=== PATIENT | female | born 1975 | race Asian ===

== ENCOUNTER 2017-09-22 08:02 | Inpatient (IN) | payer OTHER, SELFPAY ==
[2017-09-22] VITALS (8 sets, daily range): BP systolic 115–137; BP diastolic 68–82; PULSE 75–105; RESP 14–20; TEMP 36.7–37.2; O2SAT 100; BMI 22.4
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
--- NOTE | 2017-09-22 08:05 | DI.RAD.S_ITS ---
PROCEDURE: XR SHOULDER RT MIN 2V INDICATIONS: pain TECHNIQUE: 2 views of the shoulder were acquired. COMPARISON: None. FINDINGS: Bones: No fractures or dislocations. No suspicious bony lesions. Visualized ribs appear intact. Soft tissues: No suspicious soft tissue calcifications. IMPRESSION: No acute radiographic findings. If there is continued pain, followup exam or additional imaging such as MRI or CT could be performed for further assessment. Dictated by: Peggy Herrera M.D. on 09/22/2017 at 8:12 Approved by: Peggy Herrera M.D. on 09/22/2017 at 8:13
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
[2017-09-22 08:53] LABS: Add Manual Diff / Slide Review NO; Basophils Percent Auto 0.7 % (0-2); Eosinophils Percent Auto 1.4 % (2-4); Hematocrit 38.4 % (36-46); Lymphocytes Percent Auto 26.9 % (25-40); Mean Corpuscular HGB Conc 33.8 % (30-36); Mean Corpuscular Hemoglobin 30.6 PG (26-34); Mean Corpuscular Volume 90.6 fL (80-100); Monocytes Percent Auto 6.5 % (3-14); Neutrophils Absolute Auto 4500 /uL (3000-5900); Neutrophils Percent Auto 64.5 % (50-75); Platelet Count 266 X10^3/uL (150-400); Red Blood Cell Count 4.24 X10^6/uL (4.0-5.2); Red Cell Distribution Width 12.7 % (11.6-14.8)
[2017-09-22] MEDS: MORPHINE 5 MG/ML INJ 4 MG IV (08:58)
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
[2017-09-22 09:07] LABS: Alanine Aminotransferase 127 IU/L (9-52); Albumin 3.7 g/dL (3.5-5.0); Alkaline Phosphatase 45 U/L (38-126); Aspartate Aminotransferase 222 IU/L (14-36); BUN Creatinine Ratio 16.3 (6-22); Bilirubin Total 0.6 mg/dL (0.2-1.3); Blood Urea Nitrogen 13 mg/dL (7-17); Calcium 8.7 mg/dL (8.4-10.2); Carbon Dioxide 22 mmol/L (22-32); Chloride 104 mmol/L (98-107); Estimated Glomerular Filt Rate > 60.0 mL/min (>60); Globulin 3.6 g/dL (1.7-4.1); Glucose 117 mg/dL (70-100); HEMOLYSIS < 15 (0-50); Potassium 3.6 mmol/L (3.4-5.1); Sodium 136 mmol/L (137-145); Total Protein 7.3 g/dL (6.3-8.2)
[2017-09-22 09:21] LABS: Pregnancy Test Serum,Qual Negative (Negative)
[2017-09-22] MEDS: TET,DIPH,PERTUSS(ACELL),VAC/PF 0.5 ML SYRINGE IM (09:33)
--- NOTE | 2017-09-22 10:27 | PC.NURSE ---
New onset right chest pain. Call for ekg and MD made aware
--- NOTE | 2017-09-22 10:28 | PC.NURSE ---
patient was able to stand at bedside with walker but unable to ambulate due to pain
[2017-09-22] MEDS: MORPHINE 2 MG/ML INJ IV (13:18)
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
[2017-09-22] MEDS: HYDROMORPHONE PCA 6 MG/30 ML PCA.VIAL IV (21:52)
[2017-09-23 00:19] VITALS: BP 125/71; PULSE 78; RESP 19; TEMP 36.7; O2SAT 98
[2017-09-23 05:09] VITALS: BP 112/63; PULSE 70; RESP 20; TEMP 36.6; O2SAT 100
[2017-09-23] MEDS: HYDROMORPHONE PCA 6 MG/30 ML PCA.VIAL IV ×2 (05:50→22:56)
--- NOTE | 2017-09-23 07:35 | PC.NURSE ---
Pt's urine was red wine color. family and pt claimed that MD is aware of it. pt reports she started her menses. her peripad had some spotting, but not much blood in the pad to cause her urine to be red wine.
[2017-09-23 08:06] VITALS: BP 127/76; PULSE 65; RESP 16; TEMP 36.6; O2SAT 100
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
--- NOTE | 2017-09-23 09:05 | PT.IIE ---
Current Diagnoses Other specified fracture of right pubis, initial encounter for closed fracture (09/22/17) Physical Therapy Inpatient Evaluation/Re-Eval M1 PT/OT-IP Prior Functional Status Start: 09/23/17 13:11 Freq: NEEDED Status: Active Protocol: Document 09/23/17 09:05 AB (Rec: 09/23/17 13:27 [id number]) Medical Review Prior Functional Status Medical History Reviewed Yes Diet/Fluid Consistency Pureed Thin Liquids Mobility and Gait pt stated that she is independent with all mobilities and ambulation without AD Prior Functional Level (Other details) pt works in housekeeping. Social History Household Members significant other family Living Arrangements House Number of Floors (Floors) Two Floors Number of Stairs To Enter/Railing? has 1 step to enter has 1 flight of steps with R rail ascending to get to bedroom level. Home Environment Standard Height Toilet Walk in Shower Home Equipment Grab Bars In Shower Employment Status Economic Development Specialist Employed Additional Social History Comment pt lives with her and mother in law. M2 PT-IP Current Condition Start: 09/23/17 13:11 Freq: NEEDED Status: Active Protocol: Document 09/23/17 09:05 AB (Rec: 09/23/17 13:27 [id number]) Physical Therapy Current Condition Current Condition Evaluation Date 09/23/17 Treatment Diagnosis R ischial ramus fracture mildly displaced s/p trauma; difficulty in walking Onset Date 09/22/17 Weight Bearing Status Weight Bearing Status Weight Bear as Tolerated M3 PT-IP Subjective Start: 09/23/17 13:11 Freq: NEEDED Status: Active Protocol: Document 09/23/17 09:05 AB (Rec: 09/23/17 13:27 [id number]) Subjective Physical Therapy Visit Type Type Initial Evaluation Visit Start Time 09:05 Visit Stop Time 11:00 Total Visit Minutes 45 Number of SALES AND IN HOME DELIVERY SPECIALIST Visits 0 Physical Therapy Visit Comments Patient Comments pt agreeable to do therapy Therapy Pain Assessment Pain When Pain Assessed At Rest Pain Present Pain Present Pain Reported Location Bilateral Knee Intensity 6 Scale Used Numeric (1 - 10) Pain Behaviors Crying Pain Management Techniques Apply Cold Timing of Activity with Medications M4 PT-IP Mobility and Gait Start: 09/23/17 13:11 Freq: NEEDED Status: Active Protocol: Document 09/23/17 09:05 AB (Rec: 09/23/17 13:27 AB [id number]) PT-Bed Mobility Assessment Supine to Sit Supine to Sit Standby Assistance Sit to Supine Sit to Supine Moderate Assistance PT-Transfer Assessment Sit to and From Stand Sit to and from Stand Contact Guard Assistance Equipment Transfer Assistive Device Gait Belt Front Wheeled Walker Orthotic/Prosthetic Devices or Brace: No Transfers Transfer Destination Toilet Transfer Technique pt ambulated to the toilet using FWW Transfer Ability Level of Assist Minimal Assistance Moderate Assistance Comments Mobility Comments pt ambulated to the toilet using FWW initially requiring min A but requiring mod A midway due to c/o increase R groin pain. Gait Assessment Gait Gait Assistance Required: Minimum Assistance Moderate Assistance Distance (Feet) (feet) 15 Able to Maintain Weight Bearing Status Yes During Gait Assistive Devices Orthotic/Prosthetic Devices or Brace: No Gait Deviations General Gait Pattern Antalgic Decreased Stride Length Decreased Feet Clearance Factors Limiting Gait Function Factors Limiting Gait Function Decreased Activity Tolerance Decreased Strength Pain PT-Balance Assessment Sitting Balance and Reactions Static Sitting Balance Ability Good Dynamic Sitting Balance Ability Fair Standing Balance and Reactions Static Standing Balance Ability Fair Dynamic Standing Balance Ability Fair M5 PT-IP Objective Assessments Start: 09/23/17 13:11 Freq: NEEDED Status: Active Protocol: Document 09/23/17 09:05 AB (Rec: 09/23/17 13:27 [id number]) Orientation Orientation/Cognition Level of Alertness Alert Orientation Name Age Birthday Month Date Year Day of Week Place Situation Safety Awareness Understands Safety Issues Strength Lower Extremity Strength Assessment Right Impaired Comments Strength Comments pain limiting RLE M6 PT-IP Treatment Start: 09/23/17 13:11 Freq: NEEDED Status: Active Protocol: Document 09/23/17 09:05 AB (Rec: 09/23/17 13:27 [id number]) Physical Therapy Treatment Education Education Provided Weight Bearing Status M7 PT-IP Assessment and Plan Start: 09/23/17 13:11 Freq: NEEDED Status: Active Protocol: Document 09/23/17 09:05 AB (Rec: 09/23/17 13:27 [id number]) PT Summary Assessment and Plan Potential Rehabilitation Potential Fair Status of Condition at Evaluation Evolving Summary Impairments Pain ROM Strength Balance Coordination Sensation Tone Cognition Bed Mobility Transfers Gait Activity Tolerance Assessment Summary pt requiring one person assist with mobility. pt stated that she can stay on main level of the house and her [id number] can assist her at home. pt presents with decrease activity tolerance with increase pain during mobility. d/c plan depending on progress. may go home with assist but will need a FWW and/or w/c. will continue to assess. Goals Bed Mobility Goal Standby Assistance Transfer Goal Standby Assistance Gait Goal Standby Assistance Gait Distance 50 Days to Meet Goals 3 Frequency of Treatment Frequency Of Treatment Once a Day Treatment Plan Physical Therapy Treatment Plan Bed Mobility Training Transfer Training Gait Training Therapeutic Exercise Balance Retraining Post Op Education Discharge Planning Hot or Cold Pack Neuromuscular Re-ed Coordination Retraining Manual Therapy Other Recommendations and Next Treatment ambulation Focus Recommendations To Nursing Amount of Assist Needed 1 Person Assist Discharge Recommendations PT Discharge Recommendations Home with 18/10 Assist Home Health Equipment Needed for Home Before w/c; FWW Discharge
[2017-09-23 11:52] VITALS: BP 118/71; PULSE 76; RESP 16; TEMP 36.8; O2SAT 99
[2017-09-23 12:39] LABS: Bacteria Urine None Seen; RBC Urine None Seen (0-5/HPF); WBC Urine None Seen (0-5/HPF)
[2017-09-23 12:40] VITALS: BMI 22.5
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
[2017-09-23 12:59] LABS: Urine Comments Microscopic Normal
[2017-09-23] MEDS: HYDROMORPHONE PCA 6 MG/30 ML PCA.VIAL 1.6 MG IV (13:37)
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
--- NOTE | 2017-09-23 15:27 | PC.NURSE ---
Pain/Mobility/Skin: SI can't even eat a piece of bread my mouth is so sore. One of patients front incisors is cracked to the gum. She had questions about a dentist but discussed there is no house dentist at the hospital and repair will occur most likely as an outpatient, nutrition watson it does appear quite painful when she eats and RD consult was ordered and RD came and saw pt. They discussed food options and RD will be modifying diet and sending smoothies and other things the patient thinks she will be able to eat. It does feel soothing to eat ice chips. Pt has an abrasion on both the forehead and chin. Bilat hand/wrist dressings were changed today. Rt hand is worse than lt, all fingers also w/abrasions. Areas cleansed w/saline. Bilat knee dressing are intact. Pt having bloody urine vs she is having her menses. She reports she had her period 2 weeks ago. MD Bill made aware of poss bleeding in urine vs menses. See new orders. Burkett placed w/out problems, ua obtained and sent to lab. Urine appears clear. Pt resting comfortably at this time. Cont w/poc.
[2017-09-23 15:35] VITALS: BP 127/70; PULSE 67; RESP 16; TEMP 36.6; O2SAT 96
[2017-09-23 23:45] VITALS: BP 118/60; PULSE 66; RESP 15; TEMP 37; O2SAT 98
[2017-09-24 05:23] VITALS: PULSE 63; RESP 17; TEMP 36.8; O2SAT 100
[2017-09-24] MEDS: HYDROMORPHONE PCA 6 MG/30 ML PCA.VIAL IV (05:29)
--- NOTE | 2017-09-24 08:20 | PC.NURSE ---
Addendum entered by Therese Fritz R.N. 09/24/17 14:47: Up to chair again for lunch. Given 5 mg Oxycodone, which she tolerated well. Denied pain at rest after admin. SUPERVISOR CIGAR PROCESSING and IV fluids dc'd per MD orders from today. Patient able to make needs known and calls appropriately. Light in reach. Original Note: Shift summary: Awake and alert, oriented X3. Up to chair for breakfast with BISTRO SERVER assist. A lot of pain with transfers, but reports it feels good to be OOB. C/O 6/10 pain in her back, hands, knees and R arm- reports SUPERVISOR CIGAR PROCESSING Dilaudid effective for pain management. Fresh ice packs to back and bilateral knees. Dressings to bilateral hands and knees C/D/I. CMS+. IV TKO for SUPERVISOR CIGAR PROCESSING, site in L forearm WNL. Burkett patent to gravity, urine clear yellow. Working on sponge-bath with assist from sister, gown changed. Lungs CTA, HRR. BT+, abd soft. Able to make needs known and calls appropriately. Agrees not to get up without staff assist. Call light and belongings in reach.
[2017-09-24 08:33] VITALS: BP 127/78; PULSE 60; RESP 12; TEMP 36.7; O2SAT 100
--- NOTE | 2017-09-24 09:05 | PT.IPTN ---
Current Diagnoses Other specified fracture of right pubis, initial encounter for closed fracture (09/22/17) Other specified fracture of right ischium, initial encounter for closed fracture (09/22/17) Physical Therapy Treatment Note M2 PT-IP Current Condition Start: 09/23/17 13:11 Freq: NEEDED Status: Active Protocol: Document 09/23/17 09:05 AB (Rec: 09/23/17 13:27 AB [id number]) Physical Therapy Current Condition Current Condition Evaluation Date 09/23/17 Treatment Diagnosis R ischial ramus fracture mildly displaced s/p trauma; difficulty in walking Onset Date 09/22/17 Weight Bearing Status Weight Bearing Status Weight Bear as Tolerated M3 PT-IP Subjective Start: 09/23/17 13:11 Freq: NEEDED Status: Active Protocol: Document 09/24/17 09:05 AB (Rec: 09/24/17 12:44 AB [id number]) Subjective Physical Therapy Visit Type Type Treatment Note Visit Start Time 09:05 Visit Stop Time 09:45 Total Visit Minutes 40 Number of EDUCATIONAL PROGRAM DIRECTOR Visits 0 Physical Therapy Visit Comments Patient Comments pt agreeable to do therapy Therapy Pain Assessment Pain When Pain Assessed At Rest Pain Present Pain Present Pain Reported Location Right Groin Scale Used Numeric (1 - 10) Pain Management Techniques Apply Cold Timing of Activity with Medications M4 PT-IP Mobility and Gait Start: 09/23/17 13:11 Freq: NEEDED Status: Active Protocol: Document 09/24/17 09:05 AB (Rec: 09/24/17 12:44 AB [id number]) PT-Bed Mobility Assessment Sit to Supine Sit to Supine Minimal Assistance PT-Transfer Assessment Sit to and From Stand Sit to and from Stand Contact Guard Assistance Equipment Transfer Assistive Device Gait Belt Front Wheeled Walker Transfers Transfer Destination Toilet Transfer Technique pt ambulated to the toilet Transfer Ability Level of Assist Minimal Assistance Comments Mobility Comments pt requiring min A to ambulated to the toilet using FWW. requiring min A to maintain standing balance and assist with brief management. pt required rest breaks in between activities due to c/o pain. Gait Assessment Gait Gait Assistance Required: Minimum Assistance Distance (Feet) (feet) 12 Able to Maintain Weight Bearing Status Yes During Gait Assistive Devices Assistive Device Gait Belt Front Wheeled Walker Gait Deviations General Gait Pattern Antalgic Decreased Stride Length Decreased Feet Clearance Step-to Gait Factors Limiting Gait Function Factors Limiting Gait Function Decreased Activity Tolerance Decreased Strength Limited Range of Motion Pain Poor Balance M5 PT-IP Objective Assessments Start: 09/23/17 13:11 Freq: NEEDED Status: Active Protocol: Document 09/23/17 09:05 AB (Rec: 09/23/17 13:27 AB [id number]) Orientation Orientation/Cognition Level of Alertness Alert Orientation Name Age Birthday Month Date Year Day of Week Place Situation Safety Awareness Understands Safety Issues Strength Lower Extremity Strength Assessment Right Impaired Comments Strength Comments pain limiting RLE M6 PT-IP Treatment Start: 09/23/17 13:11 Freq: NEEDED Status: Active Protocol: Document 09/23/17 09:05 AB (Rec: 09/23/17 13:27 AB [id number]) Physical Therapy Treatment Education Education Provided Weight Bearing Status M7 PT-IP Assessment and Plan Start: 09/23/17 13:11 Freq: NEEDED Status: Active Protocol: Document 09/24/17 09:05 AB (Rec: 09/24/17 12:44 AB [id number]) PT Summary Assessment and Plan Potential Rehabilitation Potential Good Summary Impairments Pain ROM Strength Balance Coordination Sensation Tone Cognition Bed Mobility Transfers Gait Activity Tolerance Progress Towards Goals Slow Progress due to Pain Assessment Summary pt requiring one person assist with mobility and unable to tolerate much activity. informed pt regardging equipement needs: w/c and FWW and 18/10 assist at home. pt agreed. pt will require homehealth services. Goals Gait Goal Standby Assistance Front Wheel Walker Gait Distance 50 Days to Meet Goals 3 Frequency of Treatment Frequency Of Treatment Once a Day Treatment Plan Physical Therapy Treatment Plan Bed Mobility Training Transfer Training Gait Training Therapeutic Exercise Balance Retraining Post Op Education Discharge Planning Hot or Cold Pack Neuromuscular Re-ed Coordination Retraining Manual Therapy Other Recommendations and Next Treatment ambulation Focus Recommendations To Nursing Amount of Assist Needed 1 Person Assist Discharge Recommendations PT Discharge Recommendations Home with 18/10 Assist Home Health Equipment Needed for Home Before w/c; FWW Discharge
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
[2017-09-24] MEDS: DOCUSATE 100 MG CAPSULE PO ×2 (13:26→19:47)
[2017-09-24] MEDS: GABAPENTIN 300 MG CAPSULE PO ×2 (13:26→20:59)
[2017-09-24] MEDS: OXYCODONE IR 5 MG TABLET PO ×2 (13:27→17:26)
[2017-09-24] MEDS: ENOXAPARIN 40 MG/0.4 ML SYRINGE SUBCUT (13:27)
[2017-09-24] MEDS: MAGNESIUM HYDROXIDE 30 ML UDC PO (13:57)
[2017-09-24 14:23] VITALS: BP 139/98; PULSE 73; RESP 16; TEMP 37.1; O2SAT 100
[2017-09-24 15:35] VITALS: BP 122/88; PULSE 71; RESP 16; TEMP 37.4; O2SAT 100
[2017-09-24 19:40] VITALS: BP 137/90; PULSE 73; RESP 16; TEMP 37.1; O2SAT 95
[2017-09-24] MEDS: hydrOXYzine pamoate 25 MG CAPSULE PO (19:47)
[2017-09-24] MEDS: SENNOSIDES 8.6 MG TABLET PO (19:47)
[2017-09-24] MEDS: HYDROCODONE/ACET 5/325 TABLET 1 TAB PO (21:00)
--- NOTE | 2017-09-24 22:49 | PC.NURSE ---
CELIA SHIFT NOTE: Patient doing well this shift. Pain with ambulating and sitting up in chair. Oxycodone while effective for pain gave patient severe itching. Dr. García notified and new orders received. Burkett to gravity. No acute distress, no voiced complaint. Will continue to monitor.
[2017-09-25] VITALS (10 sets, daily range): BP systolic 109–147; BP diastolic 69–95; PULSE 57–73; RESP 12–18; TEMP 36.1–37.3; O2SAT 95–100
[2017-09-25] MEDS: HYDROCODONE/ACET 10/325 TABLET 1 TAB PO ×3 (00:37→16:43)
[2017-09-25] MEDS: HYDROCODONE/ACET 5/325 TABLET 1 TAB PO ×3 (03:24→20:59)
[2017-09-25] MEDS: DOCUSATE 100 MG CAPSULE PO (08:32)
[2017-09-25] MEDS: GABAPENTIN 300 MG CAPSULE PO ×2 (08:32→20:59)
[2017-09-25] MEDS: SODIUM CHLORIDE 0.9% FLUSH 10 ML IV ×2 (08:32→20:59)
[2017-09-25] MEDS: ENOXAPARIN 40 MG/0.4 ML SYRINGE SUBCUT (08:32)
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
[2017-09-25] MEDS: MAGNESIUM CITRATE 300 ML SOLUTION 150 ML PO (12:09)
[2017-09-25] MEDS: MAGNESIUM HYDROXIDE 30 ML UDC PO (12:10)
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
[2017-09-26] MEDS: HYDROCODONE/ACET 5/325 TABLET 1 TAB PO ×2 (00:02→05:20)
[2017-09-26 00:05] VITALS: O2SAT 98
[2017-09-26 05:20] VITALS: BP 122/69; PULSE 65; RESP 18; TEMP 36.3; O2SAT 100
[2017-09-26 07:46] VITALS: BP 123/74; PULSE 61; RESP 16; TEMP 37.8; O2SAT 100
[2017-09-26] MEDS: GABAPENTIN 300 MG CAPSULE PO (09:53)
[2017-09-26] MEDS: HYDROCODONE/ACET 10/325 TABLET 1 TAB PO ×2 (09:53→16:25)
[2017-09-26] MEDS: ENOXAPARIN 40 MG/0.4 ML SYRINGE SUBCUT (09:53)
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
[2017-09-26 11:38] VITALS: BP 135/66; PULSE 80; RESP 16; TEMP 37.2; O2SAT 100
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
--- NOTE | 2017-09-26 17:25 | PC.NURSE ---
Discharge note: Discharge instructions given to patient, prescriptions for medications and medical equipment, home care instructions, and F/U appointment with PMD,Dr. García, and Physical [facility]er[facility]. Patient verbalized understanding of discharge instructions. Discussed importance of F/U with providers. Questions answered. Patient stable, ambulating with steady gait, brother in law at bedside to take patient home.
== END 2017-09-26 17:24 | disposition home or self-care (01) | DRG 536 ==
LOC: ED 11:06 → AC 14:39
PROVIDERS: Admitting Provider Surgery; Emergency Provider Emergency Medicine; Visit Provider Surgery
DX: S32.591A Other specified fracture of right pubis, initial encounter for closed fracture (principal); V03.00XA Pedestrian on foot injured in collision with car, pick-up truck or van in nontraffic accident, initial encounter; Y92.410 Unspecified street and highway as the place of occurrence of the external cause; R31.0 Gross hematuria; S02.5XXA Fracture of tooth (traumatic), initial encounter for closed fracture; M25.511 Pain in right shoulder; R33.9 Retention of urine, unspecified; S00.93XA Contusion of unspecified part of head, initial encounter; S60.222A Contusion of left hand, initial encounter; S60.221A Contusion of right hand, initial encounter; S80.02XA Contusion of left knee, initial encounter; S80.01XA Contusion of right knee, initial encounter; S80.212A Abrasion, left knee, initial encounter; S80.211A Abrasion, right knee, initial encounter; S00.81XA Abrasion of other part of head, initial encounter; S20.91XA Abrasion of unspecified parts of thorax, initial encounter; S60.512A Abrasion of left hand, initial encounter; S60.511A Abrasion of right hand, initial encounter; T40.605A Adverse effect of unspecified narcotics, initial encounter
CPT/HCPCS: 70470; 71045; 71260; 72125; 72170; 73030; 73562; 74177; 80053; 81015; 84703; 85025; 87086; 93041; 97162; 97530; 99284; 90715; J1650; J2270; Q9967

== ENCOUNTER → 2018-02-20 11:04 | Outpatient (CLI) | payer SELFPAY ==
[2017-09-22 12:21] VITALS: BMI 22.4
[2018-02-20 12:15] LABS: Add Manual Diff / Slide Review NO; Basophils Percent Auto 0.6 % (0-2); Eosinophils Percent Auto 1.3 % (2-4); Hematocrit 39.6 % (36-46); Hemoglobin 13.5 g/dL (12.0-16.0); Lymphocytes Percent Auto 17.5 % (25-40); Mean Corpuscular HGB Conc 34.2 % (30-36); Mean Corpuscular Hemoglobin 31.2 PG (26-34); Mean Corpuscular Volume 91.2 fL (80-100); Neutrophils Absolute Auto 7300 /uL (3000-5900); Neutrophils Percent Auto 72.6 % (50-75); Platelet Count 308 X10^3/uL (150-400); Red Blood Cell Count 4.34 X10^6/uL (4.0-5.2); Red Cell Distribution Width 12.7 % (11.6-14.8)
[2018-02-20 12:44] LABS: Appearance Urine UA CLEAR; Bilirubin Urine UA NEGATIVE (NEGATIVE); Color Urine UA YELLOW; Glucose Urine UA NEGATIVE (Normal); Ketones Urine UA TRACE (NEGATIVE); Leukocyte Esterase Urine UA TRACE (NEGATIVE); Nitrite Urine UA NEGATIVE (Negative); Occult Blood Urine UA NEGATIVE (Negative); Protein Urine UA NEGATIVE (Negative); Urobilinogen Urine UA 0.2 E.U./dL (0.2)
[2018-02-20 12:49] LABS: Bacteria Urine None Seen; Culture Indicated Urine Specimen Cultured; RBC Urine None Seen (0-5/HPF); Squamous Epithelial Cell Urine 0-1 /HPF; WBC Urine 0-1/HPF (0-5/HPF)
[2018-02-20 14:48] LABS: Hepatitis B Surface Antigen NEGATIVE s/c (NEGATIVE)
[2018-02-20 15:06] LABS: HIV 1 and 2 Antibody NEGATIVE (NEGATIVE); Hep C Virus Ab w/Reflex Quant NEGATIVE s/c (NEGATIVE)
[2018-02-22 14:15] LABS: HSV 2 IGG AB < 0.90 index (< 0.90); HSV1IGG > 58.00 index (< 0.90)
[2018-02-22 16:09] LABS: RPR Screen Nonreactive (Nonreactive)
== END ==
PROVIDERS: Visit Provider Specialist
DX: O09.521 Supervision of elderly multigravida, first trimester (principal)
CPT/HCPCS: 36415; 80055; 81003; 81015; 86695; 86696; 86703; 86787; 86803; 86850; 86900; 86901; 87086

== ENCOUNTER → 2018-04-19 14:17 | Outpatient (CLI) | payer SELFPAY ==
[2017-09-22 12:21] VITALS: BMI 22.4
[2018-04-19 17:13] LABS: Hemoglobin 12.3 g/dL (12.0-16.0)
[2018-04-19 17:32] LABS: GTT (PREG) 1 Hour PP 50gm Dose 141 mg/dL (76-139)
== END ==
PROVIDERS: Visit Provider Specialist
DX: Z3A.23 23 weeks gestation of pregnancy (principal)
CPT/HCPCS: 36415; 82950; 85014; 85018

== ENCOUNTER → 2018-05-05 09:29 | Outpatient (CLI) | payer SELFPAY ==
[2017-09-22 12:21] VITALS: BMI 22.4
--- NOTE | 2018-05-05 09:30 | DI.US.S_ITS ---
PROCEDURE: US OB >= 14 WEEKS FETUS INDICATIONS: ANATOMY SCAN OUTSIDE/PRIOR DATING DATA: Last menstrual period (LMP): 12/02/17. LMP-based estimated date of delivery (SHAHLA): 09/09/18. First dating scan (date and location): 02/24/18. Estimated date of delivery (SHAHLA) from first dating scan: 07/25/18. TECHNIQUE: Real-time scanning was performed of the fetus, with image documentation and biometric measurements. COMPARISON: [facility], , OB <= 14 WEEKS FETUS, 02/24/2018, 16:08. FINDINGS: General: A single living intrauterine gestation is present. Presentation: Vertex. Placenta: Placental position is anterior lateral, without previa. Amniotic fluid index: 7.6 cm, normal range is 5-24 cm. heart rate: 160 beats per minute. Maternal cervical canal: 3.7 cm long. Normal lower limit is 2.5 cm. biometrics: Biparietal diameter: 7.0 cm 20 weeks or days Head circumference: 26.0 cm 28 weeks 2 days Abdominal circumference: 23.8 cm 28 weeks one day Femur length: 5.0 cm 27 weeks zero days Estimated gestational age from initial scan: 28 weeks 3 days Composite gestational age from present scan: 27 weeks 5 days Estimated weight and percentile: 1119 g 16th percentile Measurement variability for biometric dating: +/- 7 days from 14 weeks to 15 weeks 6 days gestation, +/- 10 days from 16 weeks to 21 weeks 6 days gestation, +/- 2 weeks from 22 weeks to 27 weeks 6 days gestation, +/- 3 weeks for 28 weeks gestation or later. weight reference: 4500 g or EFW >90/95% is considered macrosomia or large for gestational age. EFW <10% is small for gestational age. EFW 5% or less is considered intra-uterine growth restriction. Anatomic survey: Neuro: Ventricles are non-dilated at less than 10 mm. Cisterna magna is normal at 3-11 mm. Cerebellum is normal in size and morphology. Nuchal skin fold: Normal at less than 6 mm between 14-21 weeks gestational age. Face: Nose and lips, facial profile are normal. Spine: No evidence for spina bifida. Heart: 4-chambered heart is present, with normal ventricular outflow tracts. Diaphragm: Diaphragm is intact. Stomach: Left-sided stomach is present. Kidneys: No hydronephrosis. Normal is less than 5 mm in 2nd trimester, less than 7 mm in 3rd trimester. Cord: 3-vessel cord has orthotopic insertion. Bladder: Normal in size. Extremities: All 4 extremities identified. However, right upper lip suboptimally evaluated. IMPRESSION: 1. Single intrauterine with ultrasound gestational age day of 27 weeks 5 days compared to 28 weeks 3 days initial ultrasound. Ultrasound SHAHLA date is unchanged at 07/25/18. It is noted that this is markedly discrepant compared to the SHAHLA by LMP which is noted as 09/09/18. 2. Estimated weight is at the 16th percentile. Recommend close interval imaging followup for evaluation of intrauterine growth restriction versus inaccurate dating. 3. Anatomy is within normal limits, noting suboptimal evaluation of right upper limb. Followup may be obtained as clinically indicated. Dictated by: Daphne Jewell M.D. on 05/05/2018 at 16:30 Approved by: Daphne Jewell M.D. on 05/05/2018 at 16:38
== END ==
PROVIDERS: Visit Provider Specialist
DX: Z34.82 Encounter for supervision of other normal pregnancy, second trimester (principal); Z3A.27 27 weeks gestation of pregnancy
CPT/HCPCS: 76811

== ENCOUNTER → 2018-07-05 14:42 | Outpatient (CLI) | payer MEDICAID, SELFPAY ==
[2017-09-22 12:21] VITALS: BMI 22.4
[2018-07-06 14:01] LABS: Strep Grp B PCR NEG for Grp B Strep
== END ==
PROVIDERS: Visit Provider Specialist
DX: Z34.83 Encounter for supervision of other normal pregnancy, third trimester (principal); Z3A.37 37 weeks gestation of pregnancy
CPT/HCPCS: 87653

== ENCOUNTER 2018-07-19 23:20 | Inpatient (IN) | payer MEDICAID, SELFPAY ==
[2017-09-22 12:21] VITALS: BMI 22.4
[2018-07-19 23:57] LABS: Add Manual Diff / Slide Review NO; Basophils Absolute Auto 100 /uL (0-100); Basophils Percent Auto 0.7 % (0-2); Eosinophils Absolute Auto 200 /uL (0-450); Eosinophils Percent Auto 1.8 % (2-4); Hematocrit 39.1 % (36-46); Hemoglobin 13.5 g/dL (12.0-16.0); Lymphocytes Absolute Auto 2500 /uL (1100-4500); Lymphocytes Percent Auto 23.5 % (25-40); Mean Corpuscular HGB Conc 34.5 % (30-36); Mean Corpuscular Hemoglobin 32.1 PG (26-34); Monocytes Absolute Auto 1100 /uL (0-900); Monocytes Percent Auto 10.9 % (3-14); Neutrophils Absolute Auto 6700 /uL (1500-7000); Neutrophils Percent Auto 63.1 % (50-75); Platelet Count 305 X10^3/uL (150-400); Red Cell Distribution Width 13.5 % (11.6-14.8); White Blood Cell Count 10.6 X10^3/uL (4.5-11.0)
[2018-07-20] MEDS: ACETAMINOPHEN 325 MG TABLET 975 MG PO (00:20)
[2018-07-20] MEDS: CITRIC ACID/SODIUM CITRATE 15 ML SOLUTION 30 ML PO (00:20)
--- NOTE | 2018-07-20 00:22 | PM.PREOP ---
Pre-operative Note Interval Note History & Physical reviewed/Exam performed by Physician: Yes Changes to H&P: No
[2018-07-20] MEDS: LACTATED RINGERS 1,000 ML 100 ML IV ×2 (00:27→03:16)
--- NOTE | 2018-07-20 00:27 | P.HPOB_ITS ---
OB HPI Date/Time Date of admission: 07/19/18 Date Patient Seen: 07/20/18 Time Patient Seen: 00:23 History of Present Condition Chief complaint: EVALUATION OF LABOR : 7 Para: 3 Estimated Date of Delivery: 07/25/18 Estimated Gestational Age (weeks): 39 Narrative: Shweta Cool is a 42 year old female admitted in active labor Indications Operative indications ( section): previous uterine surgery History of Present care: limited care, initiated at week # (18), number of visits (6) and pounds weight gain (28) Dating criteria: based on 2nd trimester US only Obstetrical complications: gestational hypertension Medical complications: none Preadmission Labs Blood type: O (+) positive -: Antibody screen: negative, GBS status: negative, HBsAG: negative, HIV: negative, HSV 1: positive, HSV 2: negative and RPR/VDLR: negative -: Chlamydia screen: not detected and Gonorrhea screen: not detected -: Rubella: not immune and Varicella: immune HCAB: negative PAP: Normal 1 hr GTT: 141 Prior (ies) History: 1997 21 week c/section twins but did not survive, 01/24/08 40 week 9#12oz M 08/30/99 29 week 5#6oz M vaginal delivery, 09/30/10 40 week 8# F 05/26/05 40 week 8# F vaginal deliver Evaluation Evaluation Baseline heart rate: 150 Variability: Moderate (11-25) monitor accelerations: Absent monitor decelerations: Variable Contraction Frequency (minutes): 3 Category of Tracing: II Cervical dilation (cm): 6 Cervical effacement (%): 100 station: -3 Laboratory results: Laboratory Tests 07/19/18 23:49 WBC 10.6 RBC 4.20 Hgb 13.5 Hct 39.1 MCV 93.0 MCH 32.1 MCHC 34.5 RDW 13.5 Plt Count 305 Neut % (Auto) 63.1 Lymph % (Auto) 23.5 L [place] % (Auto) 10.9 Eos % (Auto) 1.8 L Baso % (Auto) 0.7 Neut # (Auto) 6700 Lymph # (Auto) 2500 [place] # (Auto) 1100 H Eos # (Auto) 200 Baso # (Auto) 100 PFSH Surgical History (Updated 07/20/18 @ 00:38 by Steph Morton MD) H/O section (Chronic) Family History Father Diabetes mellitus Mother Hypertension Social History household members: significant other and family Smoking Status: Never smoker Social History household members: significant other and family Smoking Status: Never smoker Meds Home Medications Medication Instructions Recorded Confirmed Type ferrous sulfate 220 mg (44 mg 220 mg PO DAILY ml 02/20/18 02/20/18 History iron)/5 mL oral elixir 1 tab PO DAILY 02/20/18 02/20/18 History vitamin,calcium,cdzaijpl-qzjy-nocxw acid tablet labetalol 100 mg tablet 100 mg PO BID #60 tab 04/19/18 Rx Allergies Allergy/AdvReac Type Severity Reaction Status Date / Time diphenhydramine Allergy Hives Verified 02/20/18 11:12 ibuprofen Allergy redness, Verified 02/20/18 11:12 itching Review of Systems Review of Systems Patient began having contractions earlier this evening. No leakage of fluid. No symptoms of preeclampsia. All systems reviewed & are unremarkable except as noted in HPI and below Exam Vital Signs (past 8 hours): Blood pressure 157/86, pulse 1 2, temperature 37.3? Narrative Exam Narrative: HEENT exam within normal limits. Lungs are clear to auscultation and percussion. Heart is regular rate and rhythm no S3-S4 or murmurs. Abdomen is gravid. Extremities without edema and nontender. Objective Labs Result Diagrams: 07/19/18 23:49 Labs: Laboratory Results - last 24 hr 07/19/18 23:49 WBC 10.6 RBC 4.20 Hgb 13.5 Hct 39.1 MCV 93.0 MCH 32.1 MCHC 34.5 RDW 13.5 Plt Count 305 Neut % (Auto) 63.1 Lymph % (Auto) 23.5 L [place] % (Auto) 10.9 Eos % (Auto) 1.8 L Baso % (Auto) 0.7 Neut # (Auto) 6700 Lymph # (Auto) 2500 [place] # (Auto) 1100 H Eos # (Auto) 200 Baso # (Auto) 100 Assessment and Plan Assessment and Plan Assessment and Plan narrative: Thirty-nine week gestation with history of prior and for successful 6 in in active labor. Consent form was signed for repeat section as per hospital policy. Risks of damage to intestines, bladder, ureters discussed. Risk of infection and blood transfusion discussed.
[2018-07-20 00:49] VITALS: BP 152/89
[2018-07-20] MEDS: CEFAZOLIN 2 GM/100 ML FROZ.PIGGY IV (01:00)
--- NOTE | 2018-07-20 01:33 | SUR.OPER ---
Supine on Padded OR bed, head on pillow, safety belt at thigh, arms secured on padded arm boards at <90 degrees abduction. Bump under right buttock. Legs uncrossed with pillow under knees, gel pad to heels, tape over blanket to lower legs.
[2018-07-20] MEDS: LACTATED RINGERS 1,000 ML 42 ML IV (01:38)
--- NOTE | 2018-07-20 01:39 | SUR.OPER ---
FHT 154 AFTER SPINAL PLACED, VIABLE BABY BOY BORN AT 0125
[2018-07-20 02:00] VITALS: BP 119/66; PULSE 104; RESP 27; O2SAT 99
--- NOTE | 2018-07-20 02:01 | P.OP_ITS ---
Operative Date/Time/Diagnoses Date of procedure: 07/20/18 Time of procedure: 01:58 Pre-op diagnosis: term with prior section in active labor for repeat section Post-op diagnosis: same Procedure & Clinicians Procedure: Repeat low-transverse section Same procedure as scheduled: Yes Indications: Term with prior section in active labor Click Yes if Unassisted: Yes Anesthesia Type: Spinal Operative Notes Findings: Normal tubes ovaries and uterus. Viable male infant weighing 7 lb, 3183 g with Apgars of 8 and 8 Closure Type: primary Specimen(s): none sent Applied: catheter (raya) Estimated Blood Loss (mL): 350 Blood products transfused: none Procedure in detail: The patient was brought to the operating room where she underwent a spinal for anesthesia. She was placed in a supine position with a left lateral tilt. A Raya catheter was placed. Pulsatile stockings were placed and functional throughout the case. 2 g of Ancef were given IV prior to the incision. Warming was in place. The patient was prepped and draped in usual sterile fashion. A low transverse incision was made with a scalpel and the incision was carried down to the fascial layer which was incised transversely with scissors. The midline attachments are superiorly and inferiorly. Some bleeding was controlled Bovie. The rectus muscles were in the midline and the peritoneal incision was made with no damage to internal structures. The peritoneum was incised and superiorly and inferiorly. Bladder blade was placed and a bladder flap was developed and the bladder held away from the lower u terine segment. An incision was made in the uterus with the scalpel and the incision was extended with stretching. The head was elevated out of the abdomen and with fundal pressure the baby was delivered. The was bulb suctioned for clear fluid and handed off to the warmer. Cord blood was collected. The placenta delivered spontaneously with traction. The uterus was cleaned with clean laps. The uterine incision was closed in 2 layers of 0 chromic suture the first a running locking layer the second an imbricating layer. The bladder peritoneum was repaired with 2-0 Polysorb suture. The gutters were cleaned of any remaining fluids and ovaries and tubes were observed to be normal. Adequate hemostasis was noted. The perineum was closed with 2-0 Polysorb suture. The fascia layer was closed with 0 Polysorb suture with 2 stitches. The incision was irrigated and adequate hemostasis noted. The incision was closed with interrupted 3-0 Polysorb sutures and then a subcuticular stitch of 4-0 Polysorb suture. Steri-Strips were placed. The uterus was massaged to remove any clots. The patient went to recovery room in good condition. Counts of instruments and sponges were correct. Complications: none Condition: stable Disposition: Acute Care ( center) Plan for aftercare: Routine post section
[2018-07-20 02:04] VITALS: BP 107/81; PULSE 944; RESP 16; TEMP 36.5; O2SAT 100
[2018-07-20 02:09] VITALS: BP 110/67; PULSE 92; RESP 15; O2SAT 100
[2018-07-20 02:14] VITALS: BP 110/69; PULSE 93; RESP 16; O2SAT 100
[2018-07-20 02:19] VITALS: BP 107/70; PULSE 95; RESP 16; O2SAT 100
--- NOTE | 2018-07-20 02:42 | SUR.PHASEI ---
stable PACU stay to , pt left in stable condition.
[2018-07-20] MEDS: DOCUSATE 250 MG CAPSULE PO (13:25)
[2018-07-20] MEDS: OXYCODONE/ACETAMINOPHEN 5/325 TABLET 2 TAB PO ×2 (16:43→20:34)
--- NOTE | 2018-07-20 18:14 | P.PNOB_ITS ---
Subjective - OB Patient comments: pain well controlled and other (itching) baby status: nursing well [place] feeding status: exclusively breast feeding Date Patient Seen: 07/20/18 Time Patient Seen: 18:12 Exam Vital Signs (past 8 hours): Blood pressure 139/84, pulse 92, temperature 99? Oxygen Delivery Method Room Air Narrative Exam Narrative: Abdomen is soft, nontender. Uterus is firm, at U, nontender. Dressing is dry. Mild lochia. Extremities without edema and nontender. Objective Labs Result Diagrams: 07/19/18 23:49 Labs: Laboratory Results - last 24 hr 07/19/18 07/19/18 23:49 23:49 WBC 10.6 RBC 4.20 Hgb 13.5 Hct 39.1 MCV 93.0 MCH 32.1 MCHC 34.5 RDW 13.5 Plt Count 305 Neut % (Auto) 63.1 Lymph % (Auto) 23.5 L [place] % (Auto) 10.9 Eos % (Auto) 1.8 L Baso % (Auto) 0.7 Neut # (Auto) 6700 Lymph # (Auto) 2500 [place] # (Auto) 1100 H Eos # (Auto) 200 Baso # (Auto) 100 Blood Type O Positive Antibody Screen Negative Assessment & Plan (1) Status post repeat low transverse section: Status: Acute Assessment and plan: Normal post section evaluation. Current Visit: Yes Plan day: 0 plan OB: routine postop care Time Spent With Patient Total time spent is greater than 50% in coordination of care (as documented) at patient's floor/unit and/or counseling patient: less than 15 minutes
[2018-07-21] MEDS: OXYCODONE/ACETAMINOPHEN 5/325 TABLET 2 TAB PO ×4 (00:46→12:15)
[2018-07-21 04:13] LABS: Hematocrit 35.1 % (36-46); Hemoglobin 11.9 g/dL (12.0-16.0)
[2018-07-21] MEDS: DOCUSATE 250 MG CAPSULE PO (08:34)
--- NOTE | 2018-07-21 09:51 | P.DS_ITS ---
Discharge Providers Date of admission: 07/19/18 23:20 Discharge Date: 07/21/18 Consults: 07/19/18 23:38 Consult to Anesthesiology Urgent Comment: Consulting Provider: Vivian Mendez Reason for consultation: Pain management for labor 07/20/18 02:40 Consult to Stamp Analyst Routine Comment: Discharge provider: Steph Morton MD Summary Date Patient Seen: 07/21/18 Time Patient Seen: 09:50 Procedures: Repeat low-transverse section Hospital Course: Patient underwent a repeat section for prior section in active labor. Patient did extremely well postoperatively. She was ambulatory. Tolerating pain. Minimal lochia. Passing gas. No signs or symptoms of preeclampsia. Blood pressure 138/85, pulse of 84, temperature 98.3?. Patient's abdomen is soft, nontender. Uterus is firm, at U, nontender. Dressing is dry. Mild lochia. Extremities without edema and nontender. Patient's blood type is O-positive. Patient received rubella vaccine for rubella nonimmune status. Peripartum Data Infant Delivery Method: Section complications: none [place] 1: Gender: Male Disposition of : home Discharge Diagnosis (1) Status post repeat low transverse section: Status: Acute Status at Discharge Cognitive/behavioral status at discharge: oriented Overall status at discharge: patient is progressing back to baseline Time Spent with Patient Total time spent providing and/or coordinating discharge services: Less than 30 minutes Objective Labs Result Diagrams: 07/21/18 03:35 Labs: Laboratory Results - last 24 hr 07/21/18 03:35 Hgb 11.9 L Hct 35.1 L Exam Vital Signs (past 8 hours): Oxygen Delivery Method Room Air Discharge Plan Discharge Plan Patient Disposition: Home Discharge Med Rec/Prescriptions Prescriptions: New oxycodone-acetaminophen 5-325 mg Tablet 2 tab PO Q4HR PRN (Reason: Pain, Severe (7-10)) Qty: 40 RF: 0 docusate sodium 250 mg Capsule 250 mg PO DAILY Qty: 20 RF: 0 Continued prenat.vits,mohsen,syh-lgyd-qwatk tablet 1 tab PO DAILY RF: 0 Follow up/Referrals: Steph Morton MD [Physician] - 1 Week (incision check in one week on July 27, 11:30 check in. Post visit on August 23, 11:15 check in.) Provider Discharge Instructions Diet: Regular Activity: nothing in vagina for 4 weeks, do not lift over 20# Skin/Wound/Dressing Care Report to your healthcare provider any signs of infection, such as:: chills, fever and increased pain Visit Report/Discharge Packet Stand Alone Forms: Discharge: Care Visit Report Forms: Stroke Signs & Symptoms Discharge Data Attending Provider: Steph Morton Admit Date/Time: 07/19/18 23:20 Discharges patient from system. Discharge Date/Time: 07/21/18 12:30
[2018-07-21 10:32] VITALS: BP 138/85; PULSE 84; RESP 18; TEMP 36.8
[2018-07-21] MEDS: MEASLES,MUMPS,RUBELLA VACC/PF 0.5 ML VIAL SUBCUT (11:51)
== END 2018-07-21 12:30 | disposition home or self-care (01) | DRG 788 ==
PROVIDERS: Admitting Provider Specialist; Visit Provider Specialist
PROC: 10D00Z1 Extraction of Products of Conception, Low, Open Approach (ICD-10-PCS; CPT 59514; principal; 2018-07-20 13:00)
DX: O34.219 Maternal care for unspecified type scar from previous cesarean delivery (principal); Z3A.39 39 weeks gestation of pregnancy; Z37.0 Single live birth; O13.4 Gestational [pregnancy-induced] hypertension without significant proteinuria, complicating childbirth
CPT/HCPCS: 36415; 59050; 59514; 85014; 85018; 85025; 86850; 86900; 86901; G0379; J0171; J0690; J2274; J2590

== ENCOUNTER 2019-08-21 13:48 | Emergency (ER) | payer OTHER, SELFPAY ==
[2017-09-22 12:21] VITALS: BMI 22.4
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
[2019-08-21 14:04] VITALS: BP 151/84; PULSE 85; RESP 20; TEMP 36.7; O2SAT 100
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
== END 2019-08-21 17:28 | disposition home or self-care (01) ==
PROVIDERS: Emergency Provider Emergency Medicine
DX: S62.102A Fracture of unspecified carpal bone, left wrist, initial encounter for closed fracture (principal); V49.50XA Passenger injured in collision with unspecified motor vehicles in traffic accident, initial encounter
CPT/HCPCS: 29125; 73090; 73110; 99283; 99284

== ENCOUNTER → 2019-08-26 14:02 | Outpatient (CLI) | payer OTHER, SELFPAY ==
[2017-09-22 12:21] VITALS: BMI 22.4
[2019-08-27 06:28] LABS: COVID19 Sendout Not Detected (Not Detect)
== END ==
PROVIDERS: Visit Provider Physician Assistant
DX: Z01.818 Encounter for other preprocedural examination (principal)
CPT/HCPCS: 87635

== ENCOUNTER 2019-08-29 12:24 | Day surgery (SDC) | payer OTHER, SELFPAY ==
[2017-09-22 12:21] VITALS: BMI 22.4
[2019-08-27 08:00] VITALS: BMI 21.7
[2019-08-29] VITALS (12 sets, daily range): BP systolic 133–154; BP diastolic 71–89; PULSE 76–95; RESP 14–22; TEMP 36.9–37.7; O2SAT 97–100; BMI 21.7
[2019-08-29] MEDS: LACTATED RINGERS 1,000 ML 42 ML IV (12:45)
--- NOTE | 2019-08-29 15:24 | PM.PREOP ---
Pre-operative Note COVID-19 COVID-19 status: Negative Result date/Date tested (Pos, Neg/Pending): 08/27/19 Interval Note History & Physical reviewed/Exam performed by Physician: Yes Changes to H&P: No
[2019-08-29] MEDS: CEFAZOLIN 2 GM/100 ML FROZ.PIGGY IV (15:35)
--- NOTE | 2019-08-29 16:11 | SUR.OPER ---
Supine on padded OR bed, head on pillow, right arm secured on padded arm boards at <90 degrees abduction, left arm on padded arm table under control of surgeon, legs uncrossed, safety belt at thigh, tape over blanket over lower legs.
[2019-08-29] MEDS: BUPIVACAINE 0.25% W/ EPI 30 ML VIAL INJ (16:19)
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
[2019-08-29] MEDS: ONDANSETRON 4 MG/2 ML INJ IV (17:17)
[2019-08-29] MEDS: OXYCODONE/ACETAMINOPHEN 5/325 TABLET 1 TAB PO ×2 (17:17→17:56)
[2019-08-29] MEDS: fentaNYL 100 MCG/2 ML INJ IV ×2 (17:17→17:30)
== END 2019-08-29 19:24 | disposition home or self-care (01) ==
PROVIDERS: Referring Provider Orthopaedic Surgery; Visit Provider Orthopaedic Surgery
PROC: (CPT 25609; principal; 2019-08-29 14:30)
DX: S52.572A Other intraarticular fracture of lower end of left radius, initial encounter for closed fracture (principal); S52.34 Spiral fracture of shaft of radius; V89.2XXA Person injured in unspecified motor-vehicle accident, traffic, initial encounter
CPT/HCPCS: 25609; 25515; J0690; J1100; J2250; J2405; J2704; J3010